=== PATIENT | male | born 1945 | race Caucasian/White ===

== ENCOUNTER 2019-11-28 01:48 | Inpatient (IN) | payer MEDICARE ==
[~2019-11-28] VITALS: Ht 177.8 cm; Wt 122.5 kg
--- NOTE | 2019-11-28 02:04 | NUR ---
SEEN AND EXAMINED BY
--- NOTE | 2019-11-28 02:10 | NUR ---
RT CALLED FOR MEDICATION
--- NOTE | 2019-11-28 02:10 | NUR ---
BLOOD SENT TO LAB FOR TESTING
--- NOTE | 2019-11-28 02:11 | NUR ---
PT CAME IN TO BED 8 ER C/O DIFFICULTY BREATHING. PATIENT CAME IN WITH SON AFTER SON STATES, "FOUND OUT HE WAS OVER THE SINK TRYING TO THROW UP AFTER EATING APPLE PIE". AAOX4. PLACED ON 15L OF 02 ON NON-REBREATHER MASK. NOT IN ANY DISTRESS. PATIENT IS CALM. CONNECTED TO THE MONITOR.
[2019-11-28 02:15] LABS: BASOPHILS % (AUTO) 0.3 % (0.0-2.0); EOSINOPHILS % (AUTO) 2.2 % (0.0-6.0); HEMATOCRIT 42 % (39-51); LYMPHOCYTES % (AUTO) 12.1 % (20.0-44.0); MEAN CORPUSCULAR HGB CONC 33 g/dl (31.0-36.0); MEAN CORPUSCULAR VOLUME 94 fL (80-96); MONOCYTES # (AUTO) 0.5 /CMM (0.1-1.30); MONOCYTES % (AUTO) 5.4 % (2.0-12.0); NEUTROPHILS # (AUTO) 6.9 /CMM (1.8-8.9); PLATELET COUNT (AUTO) 183 /CMM (150-450); WHITE BLOOD COUNT (AUTO) 8.6 K/uL (4.3-11.0)
[2019-11-28] MEDS ORDERED: IPRATROPIUM NEB FS 0.5 MG/2.5 ML AMPUL.NEB ONE (02:15)
[2019-11-28] MEDS ORDERED: ALBUTEROL FS 2.5 MG/3 ML VIAL.NEB ONE (02:15)
[2019-11-28 02:24] LABS: CALCIUM, SERUM 9.1 mg/dL (8.5-10.1); CARBON DIOXIDE 33 mmol/L (21-32); CHLORIDE 108 mmol/L (98-107); CREATININE 1.3 mg/dL (0.6-1.3); GLUCOSE 157 mg/dL (74-106); POTASSIUM 4.3 mmol/L (3.5-5.1); SODIUM SERUM 146 mmol/L (136-145); UREA NITROGEN, BLOOD 22 mg/dL (7-18)
--- NOTE | 2019-11-28 02:25 | NUR ---
rt at bedside
[2019-11-28] MEDS ORDERED: methylPREDNISolone SOD SUCC 125 MG/2ML VIAL ONE (02:27)
[2019-11-28] MEDS ORDERED: methylPREDNISolone SOD SUCC 125 MG/2ML VIAL IV ONE (02:30)
[2019-11-28] MEDS ORDERED: ALBUTEROL FS 2.5 MG/3 ML VIAL.NEB NEB ONE (02:30)
[2019-11-28] MEDS ORDERED: IPRATROPIUM NEB FS 0.5 MG/2.5 ML AMPUL.NEB NEB ONE (02:30)
[2019-11-28 02:41] LABS: ALANINE AMINOTRANSFERASE 44 U/L (12-78); ALBUMIN 3.6 g/dL (3.4-5.0); ALKALINE PHOSPHATASE 84 U/L (46-116); ASPARTATE AMINOTRANSFERASE 27 U/L (15-37); B-TYPE NATRIURETIC PEPTIDE 33 PG/ML (0-125); BILIRUBIN,DIRECT 0.1 mg/dL (0.0-0.2); BILIRUBIN,TOTAL 0.4 mg/dL (0.2-1.0); TOTAL PROTEIN, SERUM 7.6 g/dL (6.4-8.2)
--- NOTE | 2019-11-28 02:56 | NUR ---
RADIOLOGY AT BEDSIDE FOR CXR
--- NOTE | 2019-11-28 03:03 | NUR ---
CRIME LABORATORY ANALYST AT BEDSIDE FOR XRAY
--- NOTE | 2019-11-28 03:21 | NUR ---
PT VOMIT FOOD. BREATH SOUNDS ARE MORE CLEAR THAN ARRIVAL.
--- NOTE | 2019-11-28 03:30 | NUR ---
RADIOLOGY CALLED REGARDING CHEST X-RAY IMAGING RESULTS. RESULTS WILL ARRIVE SOON.
--- NOTE | 2019-11-28 04:10 | NUR ---
AT [facility] FOR RE-EVAL
--- NOTE | 2019-11-28 04:25 | NUR ---
PT ON 4L N/C 96% O2
[2019-11-28] MEDS ORDERED: CEFTRIAXONE 1GM BAG (ER ONLY) 50 ML IV ONE (04:27)
[2019-11-28] MEDS ORDERED: METRONIDAZOLE 500MG/ NS 100ML 100 ML IV ONE (04:27)
[2019-11-28] MEDS ORDERED: CEFTRIAXONE 1GM BAG (ER ONLY) 1 GM/50 ML PIGGYBACK IV ONE (04:30)
[2019-11-28] MEDS ORDERED: IV NS 0.9% 1,000 ML BAG IV ONE (04:30)
[2019-11-28] MEDS ORDERED: FLAGYL/NS RTU 500 MG/100 ML PIGGYBACK IV ONE (04:30)
--- NOTE | 2019-11-28 05:11 | NUR ---
PT IS GOING TO 325-1
--- NOTE | 2019-11-28 05:13 | NUR ---
DR GAINES IS SPEAKING TO DR MONSALVE RE: PT ADMISSION.
--- NOTE | 2019-11-28 05:27 | NUR ---
PT'S SON GERBER [phone]
--- NOTE | 2019-11-28 05:34 | NUR ---
REPORT GIVEN TO SHAR FOR ZEINAB.
[2019-11-28 05:53] VITALS: BP 158/92
--- NOTE | 2019-11-28 05:55 | NUR ---
BILINGUAL RECEPTIONIST NOTES RECEIVED PATIENT ON 05. PATIENT AWAKE, ALERT AND ORIENTED X 4. BREATHING EVEN AND UNLABORED ON 4L NC ON 99%. DENIES ACUTE RESPIRATORY DISTRESS, NO ACUTE PAIN. IV ON R AC #18G SALINE LOCK. CLEAN DRY AND INTACT. NO REDNESS NO INFILTRATION. TELE MONITOR ON [place] 110'S. SAFETY PRECAUTION IN PLACE. BED IN LOWEST POSITION, LOCKED, AND CALL LIGHT KEPT WITHIN REACH.
[2019-11-28 06:29] VITALS: BP 158/92
--- NOTE | 2019-11-28 07:20 | NUR ---
GANG SAWYER NOTES PATIENT AWAKE, ALERT AND ORIENTED X 4. BREATHING EVEN AND UNLABORED ON 4L NC ON 99%. DENIES ACUTE RESPIRATORY DISTRESS, NO ACUTE PAIN. IV ON R AC #18G SALINE LOCK. CLEAN DRY AND INTACT. NO REDNESS NO INFILTRATION. TELE MONITOR ON S[place] 110'S. SAFETY PRECAUTION IN PLACE. BED IN LOWEST POSITION, LOCKED, AND CALL LIGHT KEPT WITHIN REACH. WILL ENDORSE TO ONCOMING NURSE.
--- NOTE | 2019-11-28 07:31 | NUR ---
TELE/RN RECEIVED PATIENT AWAKE, ALERT AND ORIENTED X 4. BREATHING EVEN AND UNLABORED ON 4L NC ON 99%.NO SHORTNESS OF BREATH NOTED, NO ACUTE PAIN. IV ON R AC #18G SALINE LOCK. CLEAN DRY AND INTACT. SAFETY PRECAUTION IN PLACE. BED IN LOWEST POSITION, LOCKED, AND CALL LIGHT KEPT WITHIN REACH. WILL CONTINUE TO MONITOR.
[2019-11-28 08:00] VITALS: BP 135/86
[2019-11-28] MEDS ORDERED: METF-836 PO (08:04)
[2019-11-28] MEDS ORDERED: VIT1CAPS9 PO (08:04)
[2019-11-28] MEDS ORDERED: LOSA50TA39 PO (08:04)
[2019-11-28] MEDS ORDERED: PREG300C PO (08:04)
[2019-11-28] MEDS ORDERED: ATOR10TA PO (08:04)
[2019-11-28] MEDS ORDERED: VITA1TAB56 PO (08:04)
[2019-11-28] MEDS ORDERED: DULO60CA64 PO (08:04)
[2019-11-28] MEDS ORDERED: DOXA8TAB79 PO (08:04)
[2019-11-28] MEDS ORDERED: FINA5TAB11 PO (08:04)
[2019-11-28] MEDS ORDERED: CHOL200026 PO (08:04)
--- NOTE | 2019-11-28 08:31 | NUR ---
RN NOTE CALL RECEIVED FROM LAB AT THIS TIME FOR A CRITICAL LAB VALUE FOR LACTIC ACID OF 3.2, WILL INFORM HOSPITALIST AND AWAIT FOR ANY NEW ORDERS. Addendum: 11/28/19 at 0918 by JACQUES BREWSTER RN INFORMED OF NEEDING ADMIT ORDER FOR PT AND LACTIC ACID OF 3.2, SHE HE WILL GET TO IT. AWAITING FOR FURTHER ORDERS
[2019-11-28] MEDS: PREGABALIN 100 MG CAPSULE PO SCH ×2 (09:45→21:09)
[2019-11-28] MEDS ORDERED: IV NS 0.9% 500 ML IV ONE (10:00)
[2019-11-28] MEDS ORDERED: ONDANSETRON HCL/PF 4 MG/2 ML VIAL IVP PRN (10:00)
[2019-11-28] MEDS ORDERED: Z GUARD REMEDY 2 OZ OINT TP PRN (10:00)
[2019-11-28] MEDS ORDERED: ACETAMINOPHEN 325 MG TABLET PO PRN (10:00)
[2019-11-28] MEDS: IV NS 0.9% 1,000 ML IV PRN (10:51)
[2019-11-28] MEDS ORDERED: DEXTROSE 50%-WATER 50 ML DISP.SYRIN IV PRN (12:00)
[2019-11-28] MEDS: BLOOD SUGAR DIAGNOSTIC 1 EACH STRIP IN SCH ×3 (12:18→21:58)
[2019-11-28] MEDS: INSULIN REGULAR, HUMAN 100 UNIT/ML 3 ML VIAL SQ PRN ×3 (12:18→22:09)
--- NOTE | 2019-11-28 14:00 | NUR ---
RN NOTE CALL RECEIVED FROM RADIOLOGY AND INFORMED THAT THE RADIOLGIST WILL COME AT 6:30 PM AND THAT THEY WILL COME BIOMETRICIAN THE PATIENT AT 6:15 PM FOR ESOPHAGRAM. THEY WERE MADE AWARE OF PT ALLERGY TO IODINE BUT WAS INFORMED BY TECH THAT HE WILL BE TAKING ORAL IODINE AND NOT IV AND THAT IT SHOULD BE OKAY. PT MADE AWARE AND CONSENT SIGNED FOR PROCEDURE.
--- NOTE | 2019-11-28 14:37 | NUR ---
RN NOTE CALL RECEIVED FROM LINK WIRE FABRIC MACHINE OPERATOR THAT RADIOLOGIST WAS CONTACTED FOR STAT ESOPHGRAM XR, THEY WILL F/U ONCE THEY HAVE MORE INFO. WILL AWAIT FOR CALL BACK Addendum: 11/28/19 at 1809 by JACQUES BREWSTER RN WRONG TIME 1300
[2019-11-28 16:00] VITALS: BP 129/78
--- NOTE | 2019-11-28 16:50 | NUR ---
RN NOTE PT BROUGHT BACK FROM ESOPHAGRAM AT THIS TIME
[2019-11-28] MEDS ORDERED: ATORVASTATIN 10 MG TABLET PO SCH (18:00)
[2019-11-28] MEDS ORDERED: DIATR MEGLU/DIATRIZOATE SODIUM 120 ML BOTTLE (GASTROGRAPHIN) ONE (18:10)
--- NOTE | 2019-11-28 18:27 | NUR ---
RN NOTE PT TAKEN DOWN FOR ESOPHAGRAM AT THIS TIME
[2019-11-28] MEDS ORDERED: BARIUM SULFATE 98% 135 ML SUSP.RECON PO ONE (18:29)
--- NOTE | 2019-11-28 18:58 | NUR ---
MS/RN CLOSING NOTES PATIENT JUST CAME BACK FROM RADIOLOGY VIA WHEELCHAIR. PATIENT IS ALERT AND ORIENTED X4, BREATHING EVEN AND UNLABORED, PATIENT IS ON NPO POST MIDNIGHT, NO DISTRESS AT THIS TIME, WITH ON GOING IV FLUID OF NS 1L AT 75ML/HR, IV SITE IS PATENT AND INTACT,NO PAIN NOTED, SAFETY PRECAUTIONS IN PLACE, CALL LIGHT IN REACH, ALL NEEDS ATTENDED TO, WILL ENDORSE TO NIGHT RN.
--- NOTE | 2019-11-28 19:27 | NUR ---
MS RN NOTES PATIENT AWAKE, ALERT AND ORIENTED X 4. BREATHING EVEN AND UNLABORED ON 4L NC ON 99. DENIES ACUTE RESPIRATORY DISTRESS, NO ACUTE PAIN. IV ON R AC #18G RUNNING NS AT 75ML/HR. CLEAN DRY AND INTACT. NO REDNESS NO INFILTRATION. SAFETY PRECAUTION IN PLACE. BED IN LOWEST POSITION, LOCKED, AND CALL LIGHT KEPT WITHIN REACH. WILL CONTINUE TO MONITOR.
[2019-11-28 19:30] VITALS: BP 141/91
[2019-11-28 20:00] VITALS: BP 141/91
[2019-11-28] MEDS ORDERED: DOXAZOSIN MESYLATE (4 MG) 4 MG TABLET PO SCH (22:00)
[2019-11-28] MEDS ORDERED: METFORMIN XR 500 MG TAB.SR.24H PO SCH (22:00)
[2019-11-29] MEDS: IV NS 0.9% 1,000 ML IV PRN (03:05)
[2019-11-29] MEDS: BLOOD SUGAR DIAGNOSTIC 1 EACH STRIP IN SCH ×2 (06:33→11:06)
--- NOTE | 2019-11-29 06:34 | NUR ---
MS RN NOTES PATIENT IN BED ASLEEP, ALERT AND ORIENTED X 4. BREATHING EVEN AND UNLABORED ON 4L NC ON 99%. DENIES ACUTE RESPIRATORY DISTRESS, NO ACUTE PAIN. IV ON R AC #18G RUNNING NS AT 75ML/HR. CLEAN DRY AND INTACT. NO REDNESS NO INFILTRATION. SAFETY PRECAUTION IN PLACE. ALL DUE MEDICATIONS GIVEN. KEPT NPO AFTER MIDNIGHT. BED IN LOWEST POSITION, LOCKED, AND CALL LIGHT KEPT WITHIN REACH. WILL ENDORSE TO ONCOMING NURSE.
[2019-11-29 07:23] LABS: EOSINOPHILS % (AUTO) 0.6 % (0.0-6.0); HEMATOCRIT 41 % (39-51); HEMOGLOBIN 13.2 g/dL (13.5-17.5); LYMPHOCYTES # (AUTO) 1.3 /CMM (0.8-4.8); LYMPHOCYTES % (AUTO) 11.5 % (20.0-44.0); MEAN CORPUSCULAR HGB CONC 33 g/dl (31.0-36.0); MEAN CORPUSCULAR VOLUME 93 fL (80-96); MONOCYTES # (AUTO) 0.7 /CMM (0.1-1.30); MONOCYTES % (AUTO) 6.5 % (2.0-12.0); NEUTROPHILS # (AUTO) 9.2 /CMM (1.8-8.9); NEUTROPHILS % (AUTO) 81.4 % (43.0-81.0); PLATELET COUNT (AUTO) 152 /CMM (150-450); RED BLOOD CELL COUNT(AUTO) 4.34 MIL/uL (4.5-6.0); WHITE BLOOD COUNT (AUTO) 11.3 K/uL (4.3-11.0)
--- NOTE | 2019-11-29 07:39 | NUR ---
MS RN OPENING NOTES RECEIVED PATIENT IN BED RESTING COMFORTABLY IN MODERATE HIGH BACK REST. ALERT AND ORIENTED X 4. ON OXYGEN 4L VIA NC. NO SIGNS OF DISTRESS NOTED AT THIS TIME. IV ON R AC #18G RUNNING NS AT 75ML/HR. CLEAN DRY AND INTACT. NO REDNESS NO INFILTRATION. SAFETY PRECAUTION IN PLACE. BED IN LOWEST POSITION, LOCKED, AND CALL LIGHT WITHIN REACH. WILL CONTINUE TO MONITOR.
[2019-11-29 07:47] LABS: ALANINE AMINOTRANSFERASE 47 U/L (12-78); ALBUMIN 3.2 g/dL (3.4-5.0); ALKALINE PHOSPHATASE 68 U/L (46-116); ASPARTATE AMINOTRANSFERASE 24 U/L (15-37); BILIRUBIN,TOTAL 0.6 mg/dL (0.2-1.0); CARBON DIOXIDE 28 mmol/L (21-32); CHLORIDE 108 mmol/L (98-107); GLUCOSE 122 mg/dL (74-106); MAGNESIUM 2.2 mg/dL (1.8-2.4); POTASSIUM 4.3 mmol/L (3.5-5.1); SODIUM SERUM 144 mmol/L (136-145); TOTAL PROTEIN, SERUM 7.1 g/dL (6.4-8.2); UREA NITROGEN, BLOOD 22 mg/dL (7-18)
[2019-11-29 07:49] LABS: IRON, SERUM 57 ug/dl (50-175); TOTAL IRON BINDING CAPACITY 259 ug/dl (250-450)
[2019-11-29 07:54] LABS: CHOLESTEROL 149 mg/dL (<200); HDL CHOLESTEROL 54 mg/dL (40-60); LDL 70 mg/dL (0-99); THYROID STIMULATING HORMONE 0.813 uIU/mL (0.358-3.74); TRIGLYCERIDES 138 mg/dL (30-150)
[2019-11-29 08:00] VITALS: BP 157/96
[2019-11-29] MEDS ORDERED: DULOXETINE HCL 30 MG CAPSULE.DR PO SCH (09:00)
[2019-11-29] MEDS ORDERED: FINASTERIDE (5 MG) 5 MG TABLET PO SCH (09:00)
[2019-11-29] MEDS: PREGABALIN 100 MG CAPSULE PO SCH (09:00)
[2019-11-29] MEDS ORDERED: LOSARTAN POTASSIUM 50 MG TABLET PO SCH (09:00)
--- NOTE | 2019-11-29 09:10 | NUR ---
RN NOTES PATIENT LEFT THE UNIT VIA HOSPITAL BED FOR A PROCEDURE(EGD), PATIENT IN STABLE CONDITION, ALL CONSENTS SIGNED.
[2019-11-29] MEDS ORDERED: LIDOCAINE 2% 50 ML MDV IJ ONE (09:47)
--- NOTE | 2019-11-29 10:41 | NUR ---
RN NOTES PATIENT CAME BACK FROM SURGERY, IN STABLE CONDITION, NO SIGNS OF DISTRESS. RESUME ALL ORDERS. WILL CONTINUE TO MONITOR.
[2019-11-29] MEDS ORDERED: ANESTHESIA TRAY IN PYXIS 1 EA TRAY MC ONE (11:38)
[2019-11-29] MEDS ORDERED: SUCRALFATE 1 G/10 ML UDC GT SCH (12:00)
[2019-11-29] MEDS ORDERED: SUCR1ORA4 PO (14:01)
[2019-11-29] MEDS ORDERED: PANT40TA2 PO (14:01)
--- NOTE | 2019-11-29 15:46 | NUR ---
MACHINE SPRAYER NOTES PATIENT DISCHARGED IN STABLE CONDITION. A/O X 4. ABLE TO MAKE NEEDS KNOWN. V/S TAKEN, STABLE AND RECORDED. PATIENT'S IV REMOVED AND APPLIED PRESSURE DRESSING. NAME ARM BAND REMOVED. ALL BELONGINGS CHECKED AND SIGNED. HEALTH TEACHINGS/DISCHARGED INSTRUCTIONS GIVEN AND VERBALIZED UNDERSTANDING. PATIENT LEFT UNIT WITH SON VIA WHEELCHAIR ASSISTED BY HOSPITAL STAFF. IN NO ACUTE SIGNS OF DISTRESS. CHARGE NURSE AWARE OF DISCHARGED.
== END 2019-11-29 15:45 | disposition home or self-care (01) | DRG 392 ==
LOC: ER 01:51 → TELE 05:32 → MED 09:11
PROVIDERS: ADMIT Nurse Practitioner Acute Care; ATTEND Nurse Practitioner Acute Care
PROC: 0DB38ZX Excision of Lower Esophagus, Via Natural or Artificial Opening Endoscopic, Diagnostic (ICD-10-PCS; principal; 2019-11-29)
DX: K20.9 Esophagitis, unspecified (principal); E87.2 Acidosis; E87.0 Hyperosmolality and hypernatremia; I10 Essential (primary) hypertension; N40.0 Benign prostatic hyperplasia without lower urinary tract symptoms; E11.40 Type 2 diabetes mellitus with diabetic neuropathy, unspecified; E66.9 Obesity, unspecified; Z68.38 Body mass index [BMI] 38.0-38.9, adult; E78.5 Hyperlipidemia, unspecified; R13.10 Dysphagia, unspecified; K29.70 Gastritis, unspecified, without bleeding
CPT/HCPCS: 36415; 71045-TC; 71250-TC; 74230-TC; 80048-TC; 80053-TC; 80061-TC; 80076-TC; 82962-TC; 83540-TC; 83605-TC; 83690-TC; 83735-TC; 83880; 84100-TC; 84443-TC; 84484-TC; 85025-TC; 85378-TC; 87040-TC; 87081-TC; 88305-TC; 93307-TC; C1726; G0378; J0696; J1815; J2704; J2930; J3490; J7030; J7040; Q9963

== ENCOUNTER 2019-12-04 15:37 | Outpatient (CLI) | payer MEDICARE ==
[~2019-12-04 15:37] MED LIST: ATOR10TA PO; CHOL200026 PO; DOXA8TAB79 PO; DULO60CA64 PO; FINA5TAB11 PO; LOSA50TA39 PO; METF-836 PO; PANT40TA2 PO; PREG300C PO; SUCR1ORA4 PO; VIT1CAPS9 PO; VITA1TAB56 PO
[2019-12-04 15:43] VITALS: BP 107/68
== END 2019-12-04 23:59 | disposition home or self-care (01) ==
LOC: MSC 15:37
PROVIDERS: ATTEND Internal Medicine
DX: K20.9 Esophagitis, unspecified (principal); E11.42 Type 2 diabetes mellitus with diabetic polyneuropathy; Z79.84 Long term (current) use of oral hypoglycemic drugs; I10 Essential (primary) hypertension; E78.5 Hyperlipidemia, unspecified; E66.9 Obesity, unspecified; Z87.448 Personal history of other diseases of urinary system; Z79.899 Other long term (current) drug therapy

== ENCOUNTER 2020-03-03 22:55 | Inpatient (IN) | payer MEDICARE, OTHER ==
[~2020-03-03] VITALS: Ht 177.8 cm; Wt 120.2 kg
--- NOTE | 2020-03-03 23:05 | NUR ---
PT BIBS C/O HEAD PRESSURE AND TIGHTNESS, WARMTH, SOB, AND BEING UNCOMFORTABLE SINCE LAST NIGHT. PER SON, PT WAS DISORIENTED AT HOME AND HAS BEEN HAVING HIGH BLOOD PRESSURE. PT SEEMS TO BE ANXIOUS. PT CONNECTED TO THE ONLINE PROGRAM COORDINATOR AND POX
--- NOTE | 2020-03-03 23:51 | NUR ---
THERAPEUTIC ACTIVITIES SERVICES WORKER AT BEDSIDE
[2020-03-03 23:55] LABS: BASOPHILS % (AUTO) 0.2 % (0.0-2.0); HEMATOCRIT 48 % (39-51); HEMOGLOBIN 15.9 g/dL (13.5-17.5); LYMPHOCYTES # (AUTO) 0.8 /CMM (0.8-4.8); LYMPHOCYTES % (AUTO) 14.1 % (20.0-44.0); MEAN CORPUSCULAR HGB CONC 33 g/dl (31.0-36.0); MEAN CORPUSCULAR VOLUME 92 fL (80-96); MONOCYTES # (AUTO) 0.2 /CMM (0.1-1.30); MONOCYTES % (AUTO) 4.1 % (2.0-12.0); NEUTROPHILS # (AUTO) 4.7 /CMM (1.8-8.9); NEUTROPHILS % (AUTO) 80.6 % (43.0-81.0); PLATELET COUNT (AUTO) 164 /CMM (150-450); WHITE BLOOD COUNT (AUTO) 5.8 K/uL (4.3-11.0)
[2020-03-04 00:04] LABS: CALCIUM, SERUM 10.1 mg/dL (8.5-10.1); CARBON DIOXIDE 30 mmol/L (21-32); CHLORIDE 102 mmol/L (98-107); CREATININE 1.1 mg/dL (0.6-1.3); GLUCOSE 167 mg/dL (74-106); POTASSIUM 4.3 mmol/L (3.5-5.1); SODIUM SERUM 140 mmol/L (136-145); UREA NITROGEN, BLOOD 18 mg/dL (7-18)
--- NOTE | 2020-03-04 00:04 | NUR ---
GENERATING PLANT SUPERINTENDENT AT BEDSIDE FOR XRAY.
[2020-03-04 00:20] LABS: ALANINE AMINOTRANSFERASE 65 U/L (12-78); ALBUMIN 4.2 g/dL (3.4-5.0); ALKALINE PHOSPHATASE 101 U/L (46-116); ASPARTATE AMINOTRANSFERASE 23 U/L (15-37); B-TYPE NATRIURETIC PEPTIDE 158 PG/ML (0-125); BILIRUBIN,DIRECT 0.1 mg/dL (0.0-0.2); BILIRUBIN,TOTAL 0.8 mg/dL (0.2-1.0); TOTAL PROTEIN, SERUM 8.4 g/dL (6.4-8.2)
[2020-03-04] MEDS ORDERED: METOCLOPRAMIDE HCL 10 MG/2 ML VIAL ONE (00:24)
[2020-03-04] MEDS ORDERED: KETOROLAC TROMETHAMINE 15 MG/ML VIAL ONE (00:24)
[2020-03-04] MEDS ORDERED: LORAZEPAM INJ 2 MG/ML VIAL ONE (00:25)
[2020-03-04] MEDS ORDERED: METOCLOPRAMIDE HCL 10 MG/2 ML VIAL IV ONE (00:30)
[2020-03-04] MEDS ORDERED: IV NS 0.9% 1,000 ML BAG IV ONE (00:30)
[2020-03-04] MEDS ORDERED: KETOROLAC TROMETHAMINE INJ 30 MG/ML VIAL IV ONE (00:30)
[2020-03-04] MEDS ORDERED: LORAZEPAM INJ 2 MG/ML VIAL IV ONE (00:30)
[2020-03-04] MEDS ORDERED: hydrALAZINE HCL IV 20 MG VIAL ONE (01:39)
[2020-03-04] MEDS ORDERED: DIAZEPAM 5 MG TABLET ONE (01:49)
--- NOTE | 2020-03-04 01:50 | NUR ---
URINAL GIVEN BUT UNABLE TO PROVIDE URINE SPECIMEN THIS TIME.
--- NOTE | 2020-03-04 01:51 | NUR ---
PT IS WHEELED TO CT SCAN VIA [facility].
[2020-03-04] MEDS ORDERED: hydrALAZINE HCL IV 20 MG VIAL IV ONE (02:00)
[2020-03-04] MEDS ORDERED: DIAZEPAM 10 MG TABLET PO ONE (02:00)
--- NOTE | 2020-03-04 02:12 | NUR ---
URINE SPECIMEN COLLECTED AND SENT TO LAB.
--- NOTE | 2020-03-04 02:15 | NUR ---
REPORT GIVEN TO DERIC DUNN FOR ZEINAB.
[2020-03-04 02:24] LABS: APPEARANCE,URINE CLEAR (CLEAR); BILIRUBIN,URINE NEGATIVE (NEGATIVE); BLOOD, URINE NEGATIVE Ery/uL (NEGATIVE); COLOR,URINE YELLOW (YELLOW); KETONES,URINE 15 (NEGATIVE); LEUKOCYTE ESTERASE ,URINE NEGATIVE (NEGATIVE); NITRITE, URINE NEGATIVE (NEGATIVE); PH,URINE 8.5 (5.0-8.0); PROTEIN,URINE NEGATIVE (NEGATIVE); UGLUCOSE NEGATIVE (NEGATIVE); UROBILINOGEN,URINE 0.2 EU/dL (0.2)
[2020-03-04] MEDS ORDERED: FINA5TAB4 PO (02:32)
[2020-03-04] MEDS ORDERED: DOXA8TAB2 PO (02:32)
[2020-03-04] MEDS ORDERED: ASPI-605 PO (02:32)
[2020-03-04] MEDS ORDERED: LOSA50TA3 PO (02:32)
[2020-03-04 02:33] LABS: BACTERIA,URINE Few /HPF (None Seen); RBC,URINE 0-2 /HPF (0-2); SQUAMOUS EPITHELIAL CELL,UR Rare /HPF (None Seen); WBC,URINE 0-2 /HPF (0-3)
[2020-03-04 03:00] VITALS: BP 145/81
--- NOTE | 2020-03-04 03:00 | NUR ---
PRIVATE SECTOR EXECUTIVE OPENING NOTES RECEIVED PATIENT FROM ER VIA GURNEY SAFELY TRANSFERRED TO BED PT ABLE TO AMBULATE WITH ASSISTANCE, RESPIRATIONS EVEN AND UNLABORED WITH EQUAL RISE AND FALL OF CHEST, DENIES ANY PAIN OR DISCOMFORT AT THIS TIME, APPEARS ANXIOUS.ALERT AND ORIENTED X 3 ABLE TO MAKE NEEDS KNOWN, IV SITE TO LEFT HAND #20G INTACT AND PATENT, NO REDNESS, NO INFILTRATION PRESENT, SKIN ASSESSMENT DONE NO OPEN SKIN ISSUES, BELONGINGS LIST DONE, PLACED ON IT FIELD TECHNICIAN SR AND ST NO DISTRESS PRESENT, VS WNL , WILL CONTINUE TO MONITOR AND FOLLOW MD ORDERS, ORIENTED TO STAFF AND CALL LIGHT AND KEPT WITHIN REACH, SAFETY PRECAUTIONS IN PLACE, LOW BED AND LOCKED, BED ALARM IN PLACE, TOILETING OFFERED.
[2020-03-04] MEDS ORDERED: ONDANSETRON HCL/PF 4 MG/2 ML VIAL IVP PRN (04:00)
[2020-03-04] MEDS ORDERED: ACETAMINOPHEN 325 MG TABLET PO PRN (04:00)
[2020-03-04] MEDS ORDERED: Z GUARD REMEDY 2 OZ OINT TP PRN (04:00)
[2020-03-04 05:23] LABS: BASOPHILS % (AUTO) 0.1 % (0.0-2.0); EOSINOPHILS % (AUTO) 0.2 % (0.0-6.0); HEMATOCRIT 45 % (39-51); HEMOGLOBIN 14.7 g/dL (13.5-17.5); LYMPHOCYTES # (AUTO) 0.7 /CMM (0.8-4.8); MEAN CORPUSCULAR HGB CONC 33 g/dl (31.0-36.0); MEAN CORPUSCULAR VOLUME 93 fL (80-96); MONOCYTES # (AUTO) 0.3 /CMM (0.1-1.30); MONOCYTES % (AUTO) 4.4 % (2.0-12.0); NEUTROPHILS # (AUTO) 5.3 /CMM (1.8-8.9); NEUTROPHILS % (AUTO) 84.3 % (43.0-81.0); PLATELET COUNT (AUTO) 165 /CMM (150-450); RED BLOOD CELL COUNT(AUTO) 4.86 MIL/uL (4.5-6.0); WHITE BLOOD COUNT (AUTO) 6.3 K/uL (4.3-11.0)
[2020-03-04 05:34] LABS: ALBUMIN 3.6 g/dL (3.4-5.0); BILIRUBIN,TOTAL 0.5 mg/dL (0.2-1.0); CALCIUM, SERUM 9.3 mg/dL (8.5-10.1); CREATININE 1.3 mg/dL (0.6-1.3); POTASSIUM 4.3 mmol/L (3.5-5.1); TOTAL PROTEIN, SERUM 7.4 g/dL (6.4-8.2)
[2020-03-04 05:45] LABS: C-REACTIVE PROTEIN < 0.2 mg/dL (0.0-0.9)
[2020-03-04 06:25] LABS: THYROID STIMULATING HORMONE 2.936 uIU/mL (0.358-3.74)
--- NOTE | 2020-03-04 06:27 | NUR ---
FOOD AND BEVERAGE OUTLETS MANAGER CLOSING NOTES PATIENT ABLE TO AMBULATE WITH ASSISTANCE, RESPIRATIONS EVEN AND UNLABORED WITH EQUAL RISE AND FALL OF CHEST, DENIES ANY PAIN OR DISCOMFORT AT THIS TIME, APPEARS ANXIOUS.ALERT AND ORIENTED X 3 ABLE TO MAKE NEEDS KNOWN, IV SITE TO LEFT HAND #20G INTACT AND PATENT, NO REDNESS, NO INFILTRATION PRESENT, ON HEALTH POLICY NURSE SR 85 WITH PVC NO DISTRESS PRESENT , VS REMAINED WNL , WILL CONTINUE TO MONITOR AND FOLLOW MD ORDERS AND ENDORSE TO NEXT SHIFT, CALL LIGHT KEPT WITHIN REACH, SAFETY PRECAUTIONS IN PLACE, LOW BED AND LOCKED, BED ALARM IN PLACE, TOILETING OFFERED. ALL NEEDS WERE ATTENDED, NO FURTHER CHANGES NOTED SINCE ADMISSION.
[2020-03-04 06:45] VITALS: BP 155/81
--- NOTE | 2020-03-04 07:48 | NUR ---
PERFECT BINDER OPERATOR NOTES RECEIVED PT THIS MORNING FROM TRAINING MANAGER. PT IN BED AWAKE AND HOB ELEVATED. PT AOX3, PT 2L OXYGEN VIA NC, RESPIRATIONS EVEN AND UNLABORED PT DENIES ANY PAIN OR DISCOMFORT AT THIS TIME, PT ABLE TO VERBALIZE NEEDS, IV SITE TO LEFT HAND G#20G INTACT AND PATENT, NO REDNESS, NO INFILTRATION PRESENT, PT ON TURF MANAGER SR IN THE 90s.SAFETY PRECAUTIONS IN PLACE, BED IN LOCKED LOWEST POSITION, SIDE RAILS UP, BED ALARM IN PLACE, CALL LIGHT WITHIN REACH. WILL CONTINUE TO MONITOR
[2020-03-04 07:51] VITALS: BP 154/99
[2020-03-04] MEDS ORDERED: CHOLECALCIFEROL 1,000 UNIT TABLET (VIT D3) PO SCH (09:00)
[2020-03-04] MEDS ORDERED: PREGABALIN 100 MG CAPSULE PO SCH (09:00)
[2020-03-04] MEDS ORDERED: VALSARTAN 80 MG TABLET PO SCH (09:00)
[2020-03-04] MEDS ORDERED: LOSARTAN POTASSIUM 50 MG TABLET PO SCH (09:00)
[2020-03-04] MEDS ORDERED: ASPIRIN EC 81 MG TABLET.DR PO SCH (09:00)
[2020-03-04] MEDS ORDERED: FINASTERIDE (5 MG) 5 MG TABLET PO SCH (09:00)
[2020-03-04] MEDS ORDERED: MULTIVITAMIN/LUTEIN/MINERALS 1 TAB PO SCH (09:00)
[2020-03-04] MEDS ORDERED: VITAMIN B COMP W-C 1 TAB TABLET PO SCH (09:00)
[2020-03-04] MEDS ORDERED: CARVEDILOL 12.5 MG TABLET PO SCH (09:00)
[2020-03-04] MEDS ORDERED: DOXAZOSIN MESYLATE (4 MG) 4 MG TABLET PO SCH (09:00)
[2020-03-04] MEDS ORDERED: PANTOPRAZOLE 40 MG TABLET.DR PO SCH (09:00)
[2020-03-04] MEDS ORDERED: SUCRALFATE 1 G/10 ML UDC PO SCH (09:00)
[2020-03-04 09:15] VITALS: BP 154/99
--- NOTE | 2020-03-04 10:30 | NUR ---
RN AMA NOTES PATIENT WANTS TO LEAVE AMA, EDWAR AWARE, PATIENT SIGNED AMA FORM. PER PATIENT HE WANTS TO LEAVE NOW BECAUSE HE IS NOW OKAY. EXPLAINED THE RISKS OF GOING HOME AMA BUT PATIENT STILL INSIST. REMOVED IV ACCESS AND APPLIED PRESSURE DRESSING. REMOVED ID BAND. SKIN IS INTACT. PATIENT WAS PICKED UP BY SON. CHARGE NURSE MADE AWARE.
[2020-03-04] MEDS ORDERED: ATORVASTATIN 10 MG TABLET PO SCH (18:00)
[2020-03-04] MEDS ORDERED: METFORMIN XR 500 MG TAB.SR.24H PO SCH (18:00)
== END 2020-03-04 10:45 | disposition left against medical advice (07) | DRG 305 ==
LOC: ER 22:55 → TELE2 03-04 02:00 → MEDSG2 03-04 08:21
PROVIDERS: ADMIT Nurse Practitioner Acute Care; ATTEND Nurse Practitioner Acute Care
DX: I16.0 Hypertensive urgency (principal); F32.9 Major depressive disorder, single episode, unspecified; Z79.82 Long term (current) use of aspirin; Z87.442 Personal history of urinary calculi; I10 Essential (primary) hypertension; Z88.1 Allergy status to other antibiotic agents; Z91.041 Radiographic dye allergy status; Z91.013 Allergy to seafood; Z79.84 Long term (current) use of oral hypoglycemic drugs; Z79.899 Other long term (current) drug therapy; E66.9 Obesity, unspecified; G47.33 Obstructive sleep apnea (adult) (pediatric); K21.0 Gastro-esophageal reflux disease with esophagitis; N40.0 Benign prostatic hyperplasia without lower urinary tract symptoms; E78.5 Hyperlipidemia, unspecified; E11.40 Type 2 diabetes mellitus with diabetic neuropathy, unspecified; E11.65 Type 2 diabetes mellitus with hyperglycemia; E86.0 Dehydration
CPT/HCPCS: 36415; 70450-TC; 71045-TC; 80048-TC; 80053-TC; 80061-TC; 80076-TC; 81000-TC; 83615-TC; 83880; 84439-TC; 84443-TC; 84484-TC; 85025-TC; 85652-TC; 86140-TC; 87081-TC; 87086-TC; 93880-TC; 97116-TC; 97530-TC; A4216; G0378; J0360; J1885; J2060; J2765; J7030

== ENCOUNTER 2023-04-21 18:00 | Emergency (ER) | payer MEDICARE, OTHER ==
[~2023-04-21] VITALS: Ht 182.9 cm; Wt 112.5 kg
[~2023-04-21 18:00] MED LIST changes: +ASPI-605 PO; +DOXA8TAB2 PO; -DOXA8TAB79 PO; -DULO60CA64 PO; -FINA5TAB11 PO; +FINA5TAB4 PO; +LOSA50TA3 PO
--- NOTE | 2023-04-21 18:00 | NUR ---
BIBA FOR SHORTNESS OF BREATH. A/O X 3, ABLE TO MAKE NEEDS KNOWN, TOLERATING WELL ON ROOM AIR.
--- NOTE | 2023-04-21 18:19 | NUR ---
18 g L AC saline lock present COMMERCIAL HOUSEKEEPER
--- NOTE | 2023-04-21 18:20 | NUR ---
BLOOD SAMPLES OBTAINED
--- NOTE | 2023-04-21 18:27 | NUR ---
accucheck 106
--- NOTE | 2023-04-21 18:27 | NUR ---
PATIENT TAKES ORAL ANTIDIABETIC MEDICATIONS, ANTIHYPERTENSIVES, AND BPH MEDS. MADE AWARE. PATIENT VOMITED X 1 TODAY WITH CLEAR EMESIS. Addendum: 04/21/23 at 1834 by JUAN PATIENT HAD EMESIS X 2 TODAY, FIRST EPISODE HAD 'A LOT' OF EMESIS, SECOND HAD SMALL AMOUNT OF CLEAR EMESIS
--- NOTE | 2023-04-21 18:37 | NUR ---
PATIENT WITH NO NAUSEA CURRENTLY
[2023-04-21] MEDS ORDERED: TAMS-12 PO (18:39)
[2023-04-21] MEDS ORDERED: TEST75AU SQ (18:39)
[2023-04-21] MEDS ORDERED: EMPA1TAB15 PO (18:39)
[2023-04-21] MEDS ORDERED: CHOL100043 PO (18:39)
[2023-04-21] MEDS ORDERED: GEMTESA PO (18:39)
[2023-04-21] MEDS ORDERED: DULA1.5P SQ (18:39)
[2023-04-21] MEDS ORDERED: CALC250T2 PO (18:39)
[2023-04-21] MEDS ORDERED: ICOS1CAP PO (18:39)
[2023-04-21] MEDS ORDERED: DULO60CA64 PO (18:39)
[2023-04-21] MEDS ORDERED: VIT1CAPS44 PO (18:39)
[2023-04-21 18:58] LABS: BASOPHILS % (AUTO) 0.3 % (0.0-2.0); EOSINOPHILS % (AUTO) 0.1 % (0.0-6.0); HEMATOCRIT 55 % (39-51); HEMOGLOBIN 17.7 g/dL (13.5-17.5); LYMPHOCYTES # (AUTO) 0.9 K/uL (0.8-4.8); MEAN CORPUSCULAR HGB CONC 33 g/dl (31.0-36.0); MEAN CORPUSCULAR VOLUME 95 fL (80-96); MONOCYTES # (AUTO) 0.6 K/uL (0.1-1.30); MONOCYTES % (AUTO) 5.7 % (2.0-12.0); NEUTROPHILS # (AUTO) 8.8 K/uL (1.8-8.9); NEUTROPHILS % (AUTO) 84.9 % (43.0-81.0); PLATELET COUNT (AUTO) 175 K/uL (150-450); RED BLOOD CELL COUNT(AUTO) 5.75 MIL/uL (4.5-6.0); WHITE BLOOD COUNT (AUTO) 10.4 K/uL (4.3-11.0)
[2023-04-21 19:30] LABS: CALCIUM, SERUM 9.6 mg/dL (8.5-10.1); CARBON DIOXIDE 28 mmol/L (21-32); CHLORIDE 101 mmol/L (98-107); CREATININE 1.4 mg/dL (0.6-1.3); GLUCOSE 123 mg/dL (74-106); POTASSIUM 4.3 mmol/L (3.5-5.1); SODIUM SERUM 139 mmol/L (136-145); UREA NITROGEN, BLOOD 27 mg/dL (7-18)
[2023-04-21 19:42] LABS: ALANINE AMINOTRANSFERASE 28 U/L (12-78); ALBUMIN 4.2 g/dL (3.4-5.0); ALKALINE PHOSPHATASE 78 U/L (46-116); ASPARTATE AMINOTRANSFERASE 28 U/L (15-37); BILIRUBIN,DIRECT 0.3 mg/dL (0.0-0.2); BILIRUBIN,TOTAL 1.5 mg/dL (0.2-1.0); TOTAL PROTEIN, SERUM 7.9 g/dL (6.4-8.2)
--- NOTE | 2023-04-21 19:55 | NUR ---
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 IT IS ATTACHED TO HIS RIGHT FLANK AREA
--- NOTE | 2023-04-21 19:55 | NUR ---
RECEIVED PT AAOX4,ABLE TO MAKE NEEDS KNOWN. CAME EARLIER WITH CC OF SOB. PT LOOKS FLUSHED DURING ASSESSMENT BUT CLAIMED THAT IT IS NORMAL FOR HIM. WITH IV TRICE ON G20 ON LEFT AC. VITALS CHECKED. SON AT BEDSIDE
[2023-04-21] MEDS ORDERED: LORAZEPAM INJ 2 MG/ML VIAL IV ONE (20:00)
[2023-04-21] MEDS ORDERED: LORAZEPAM INJ 2 MG/ML VIAL ONE (20:10)
--- NOTE | 2023-04-21 20:13 | NUR ---
PT WHEELED TO CT DEPT.
--- NOTE | 2023-04-21 20:24 | NUR ---
PT CAME BACK FROM CT SCAN, ANXIOUS, DIAPHORETIC. ATTACHED BACK TO LOMBARDI DEVELOPER. ATIVAN IV GIVEN
[2023-04-21] MEDS ORDERED: HYDROCHLOROTHIAZIDE 25 MG TABLET PO ONE (22:30)
[2023-04-21] MEDS ORDERED: HYDR12.55 PO (22:30)
[2023-04-21] MEDS ORDERED: HYDROCHLOROTHIAZIDE 25 MG TABLET ONE (22:31)
--- NOTE | 2023-04-21 22:44 | NUR ---
Patient discharged to home in stable condition. RX Written and verbal after care instructions given. Patient verbalizes understanding of instruction. IV removed. Catheter intact and site benign. Pressure and 4x4 applied to site. No bleeding noted. pt ambulatory with a steady gait
[2023-04-21 22:52] VITALS: BP 145/89
== END 2023-04-21 22:53 | disposition home or self-care (01) ==
LOC: ER 18:04
DX: I10 Essential (primary) hypertension (principal); N18.9 Chronic kidney disease, unspecified; Z91.040 Latex allergy status; Z79.899 Other long term (current) drug therapy; Z79.82 Long term (current) use of aspirin; Z88.1 Allergy status to other antibiotic agents
CPT/HCPCS: 99285; 96374; 70450; 71045; 93005; 85025; 80048; 80076; 36415; 84484 ×2; 83880; J2060